=== PATIENT | female | born 1960 | race Caucasian/White ===

== ENCOUNTER 2018-02-20 19:59 | Emergency (ER) | payer OTHER ==
[~2018-02-20] VITALS: Ht 162.6 cm; Wt 63.0 kg
[2018-02-20] MEDS ORDERED: LOSA25TA13 PO (20:08)
--- NOTE | 2018-02-20 20:25 | NUR ---
PT IN BED. PT IS CALM AND COOPERATIVE. PT DENIES CHEST PAIN AND/OR ANY DIFFICULTIES WITH BREATHING. NO SIGNS OF ACUTE DISTRESS WITNESSED AT THIS TIME.
--- NOTE | 2018-02-20 20:50 | NUR ---
NURSING MEAT TEAM MEMBER, PENNY AT BEDSIDE.
--- NOTE | 2018-02-20 21:20 | NUR ---
MD DICKENS AT BEDSIDE
--- NOTE | 2018-02-20 21:25 | NUR ---
Patient discharged to home in stable conditon. Written and verbal after care instructions given. Patient verbalizes understanding of instructions. Patient able to ambulate unassisted with a steady gait. Patient left with all personal belongings.
[2018-02-20 21:31] VITALS: BP 152/88
== END 2018-02-20 21:25 | disposition home or self-care (01) ==
LOC: ER 20:02
DX: I10 Essential (primary) hypertension (principal); Z79.899 Other long term (current) drug therapy
CPT/HCPCS: 99281; A4663